=== PATIENT | female | born 2000 | race American Indian/Alaskan Native ===

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

== ENCOUNTER 2021-06-04 13:45 | Emergency (ER) | payer MEDICAID ==
[2021-06-04 14:19] VITALS: BP 146/92
--- NOTE | 2021-06-04 14:44 | Emergency Department Report ---
ED ENT HPI - General Chief complaint: Dental/Oral Stated complaint: TOOTHACHE Source: patient Mode of arrival: Ambulatory Limitations: No Limitations - History of Present Illness Initial comments: 20-year-old female presents to the ED complaining of toothache x 4 days . Patient states that she does not have access to the dental presents . She denies taking any xtpr-nni-[id number] medication prior to arrival. Patient do not have any obvious edema noted. No trismus noted. Patient is alert and oriented x4. No ill appearance noted .no acute distress noted MD complaint: tooth pain Severity scale (0 -10): 6 Context- Dental: history of dental caries Associated Symptoms: toothache. denies: fever, cough, gum swelling, pain with swallowing, tinnitus, discharge from ear - Related Data Previous Rx's Medication Instructions Recorded Last Taken Type Ibuprofen [Motrin] 600 mg PO Q8H PRN #30 tablet 11/17/20 Unknown Rx Ibuprofen [Motrin] 800 mg PO Q8HR PRN 15 Days #30 06/04/21 Unknown Rx tablet Penicillin V Potassium 500 mg PO BID 10 Days #20 tab 06/04/21 Unknown Rx Allergies Allergy/AdvReac Type Severity Reaction Status Date / Time No Known Allergies Allergy Unverified 11/16/20 21:39 ED Dental HPI - General Chief complaint: Dental/Oral Stated complaint: TOOTHACHE Source: patient Mode of arrival: Ambulatory Limitations: No Limitations - Related Data Previous Rx's Medication Instructions Recorded Last Taken Type Ibuprofen [Motrin] 600 mg PO Q8H PRN #30 tablet 11/17/20 Unknown Rx Ibuprofen [Motrin] 800 mg PO Q8HR PRN 15 Days #30 06/04/21 Unknown Rx tablet Penicillin V Potassium 500 mg PO BID 10 Days #20 tab 06/04/21 Unknown Rx Allergies Allergy/AdvReac Type Severity Reaction Status Date / Time No Known Allergies Allergy Unverified 11/16/20 21:39 ED Review of Systems ROS: Stated complaint: TOOTHACHE Other details as noted in HPI Constitutional: denies: chills, fever Eyes: denies: eye pain, eye discharge, vision change ENT: dental pain. denies: ear pain, throat pain Respiratory: denies: cough, shortness of breath, wheezing Cardiovascular: denies: chest pain, palpitations Endocrine: no symptoms reported Gastrointestinal: denies: abdominal pain, nausea, diarrhea Genitourinary: denies: urgency, dysuria, discharge Musculoskeletal: denies: back pain, joint swelling, arthralgia Skin: denies: rash, lesions Neurological: denies: headache, weakness, paresthesias Psychiatric: denies: anxiety, depression Hematological/Lymphatic: denies: easy bleeding, easy bruising ED Past Medical Hx - Past Medical History Previous Medical History?: No - Surgical History Past Surgical History?: No - Social History Smoking Status: Never Smoker Substance Use Type: Marijuana - Medications Home Medications: Home Medications Medication Instructions Recorded Confirmed Last Taken Type Ibuprofen [Motrin] 600 mg PO Q8H PRN #30 tablet 11/17/20 Unknown Rx Ibuprofen [Motrin] 800 mg PO Q8HR PRN 15 Days #30 06/04/21 Unknown Rx tablet Penicillin V Potassium 500 mg PO BID 10 Days #20 tab 06/04/21 Unknown Rx ED Physical Exam - General Limitations: No Limitations General appearance: alert, in no apparent distress - Head Head exam: Present: atraumatic, normocephalic - Eye Eye exam: Present: normal appearance - ENT ENT exam: Present: mucous membranes moist - Neck Neck exam: Present: normal inspection - Respiratory Respiratory exam: Present: normal lung sounds bilaterally. Absent: respiratory distress - Cardiovascular Cardiovascular Exam: Present: regular rate, normal rhythm. Absent: systolic murmur, diastolic murmur, rubs, gallop - GI/Abdominal GI/Abdominal exam: Present: soft, normal bowel sounds - Extremities Exam Extremities exam: Present: normal inspection - Back Exam Back exam: Present: normal inspection - Neurological Exam Neurological exam: Present: alert, oriented X3 - Psychiatric Psychiatric exam: Present: normal affect, normal mood - Skin Skin exam: Present: warm, dry, intact, normal color. Absent: rash ED Course Vital Signs 06/04/21 14:17 Temperature 98 F Pulse Rate 86 Respiratory 16 Rate Blood Pressure 146/92 [Left] O2 Sat by Pulse 100 Oximetry ED Medical Decision Making - Medical Decision Making 20-year-old female presents to the ED complaining of toothache x 4 days . Patient states that she does not have access to the dental presents . She denies taking any jyyp-dju-jnrzbjd medication prior to arrival. Patient do not have any obvious edema noted. No trismus noted. Patient is alert and oriented x4. No ill appearance noted .no acute distress noted. Patient has a dental cavity noted to the tooth #21. Uvula is midline. No tenderness noted to the gum area. Rechecked the patient is resting quietly quietly and comfortable and feeling better. I discussed the results of diagnostic study, my clinical impression and the plan for further treatment with the patient. Patient agrees with plan and discharge at this present time. All question addressed. I have given the patient instruction regarding a diagnosis ,expectation ,follow- up and return precaution. I explained to the patient that emergent condition may arise and to return to the ED for new worsen and any new persisting condition. I have explained the importance of following up with the primary care physician or referral physician listed below has instructed. The patient verbalized understanding of discharge instruction. Critical care attestation.: If time is entered above; I have spent that time in minutes in the direct care of this critically ill patient, excluding procedure time. ED Disposition Clinical Impression: Dental cavity Disposition: HOME / SELF CARE / HOMELESS Is pt being admited?: No Does the pt Need Aspirin: No Condition: Stable Instructions: Preventive Dental Care, Adult Additional Instructions: Follow-up with dentist Take medication as prescribed May go to urgent care 14/11 for extraction Prescriptions: Ibuprofen [Motrin] 800 mg PO Q8HR PRN 15 Days #30 tablet PRN Reason: Pain, Moderate (4-6) Penicillin V Potassium 500 mg PO BID 10 Days #20 tab Referrals: PRIMARY CARE, [Primary Care Provider] - 3-5 Days [facility] [Outside] - 3-5 Days Forms: Work/School Release Form(ED) Time of Disposition: 14:55
== END 2021-06-04 15:53 | disposition home or self-care (01) ==
LOC: ED 13:45
DX: K02.9 Dental caries, unspecified (principal); F12.90 Cannabis use, unspecified, uncomplicated; Z79.899 Other long term (current) drug therapy
CPT/HCPCS: 99282

== ENCOUNTER 2021-07-18 17:05 | Emergency (ER) | payer MEDICAID ==
--- NOTE | 2021-07-18 18:33 | Emergency Department Report ---
ED ENT HPI - General Chief complaint: Earache Stated complaint: EAR INFECTION Time Seen by Provider: 07/18/21 18:15 Source: patient Mode of arrival: Ambulatory Limitations: No Limitations - History of Present Illness Initial comments: 20-year-old black female with no past medical history presents to the emergency department for evaluation of foreign body in left ear canal. She states that she had a small earring in her left ear and she was taken out last night and accidentally dropped it into her ear canal and has been unable to get it out since then. She denies pain or drainage from ear. MD complaint: foreign body -: days(s) (1) Location: L ear Severity scale (0 -10): 0 Associated Symptoms: denies: fever, tinnitus, discharge from ear - Related Data Previous Rx's Medication Instructions Recorded Last Taken Type Ibuprofen [Motrin] 600 mg PO Q8H PRN #30 tablet 11/17/20 Unknown Rx Ibuprofen [Motrin] 800 mg PO Q8HR PRN 15 Days #30 06/04/21 Unknown Rx tablet Penicillin V Potassium 500 mg PO BID 10 Days #20 tab 06/04/21 Unknown Rx Allergies Allergy/AdvReac Type Severity Reaction Status Date / Time No Known Allergies Allergy Unverified 11/16/20 21:39 ED Dental HPI - General Chief complaint: Earache Stated complaint: EAR INFECTION Time Seen by Provider: 07/18/21 18:15 Source: patient Mode of arrival: Ambulatory Limitations: No Limitations - Related Data Previous Rx's Medication Instructions Recorded Last Taken Type Ibuprofen [Motrin] 600 mg PO Q8H PRN #30 tablet 11/17/20 Unknown Rx Ibuprofen [Motrin] 800 mg PO Q8HR PRN 15 Days #30 06/04/21 Unknown Rx tablet Penicillin V Potassium 500 mg PO BID 10 Days #20 tab 06/04/21 Unknown Rx Allergies Allergy/AdvReac Type Severity Reaction Status Date / Time No Known Allergies Allergy Unverified 11/16/20 21:39 ED Review of Systems ROS: Stated complaint: EAR INFECTION Other details as noted in HPI Comment: All other systems reviewed and negative Constitutional: denies: chills, fever ENT: denies: ear pain Respiratory: denies: shortness of breath Cardiovascular: denies: chest pain, palpitations Gastrointestinal: denies: abdominal pain, nausea, vomiting Musculoskeletal: denies: back pain Skin: denies: rash, lesions Neurological: denies: headache, weakness ED Past Medical Hx - Past Medical History Previous Medical History?: No - Surgical History Past Surgical History?: No - Social History Smoking Status: Never Smoker Substance Use Type: Marijuana - Medications Home Medications: Home Medications Medication Instructions Recorded Confirmed Last Taken Type Ibuprofen [Motrin] 600 mg PO Q8H PRN #30 tablet 11/17/20 Unknown Rx Ibuprofen [Motrin] 800 mg PO Q8HR PRN 15 Days #30 06/04/21 Unknown Rx tablet Penicillin V Potassium 500 mg PO BID 10 Days #20 tab 06/04/21 Unknown Rx ED Physical Exam - General Limitations: No Limitations General appearance: alert, in no apparent distress - Head Head exam: Present: atraumatic, normocephalic - Eye Eye exam: Present: normal appearance. Absent: conjunctival injection - Expanded ENT Exam Expanded TM/Canal exam: Foreign Body: Left TM - Neck Neck exam: Present: normal inspection - Respiratory Respiratory exam: Absent: respiratory distress - Cardiovascular Cardiovascular Exam: Present: regular rate - GI/Abdominal GI/Abdominal exam: Absent: distended - Extremities Exam Extremities exam: Present: normal inspection - Back Exam Back exam: Present: normal inspection - Neurological Exam Neurological exam: Present: alert, oriented X3 - Psychiatric Psychiatric exam: Present: normal affect, normal mood - Skin Skin exam: Present: warm, dry, intact, normal color ED Course Vital Signs 07/18/21 07/18/21 17:35 19:07 Temperature 98.1 F 98.4 F Pulse Rate 84 80 Respiratory 20 16 Rate Blood Pressure 132/68 124/79 [Right] O2 Sat by Pulse 100 100 Oximetry - Foreign Body Removal Ear Location: ear canal (L) Foreign Body Suspected: other (Small urine) Foreign Body Removed: yes Foreign Body Removal Technique: forceps (Alligator forceps) Tympanic Membrane Intact: Yes Patient Tolerated Procedure: well, no complications Complications: none Additional Comments: Earring totally intact when removed. ED Medical Decision Making - Medical Decision Making 20-year-old black female with no past medical history presents to the emergency department for evaluation of foreign body in left ear canal. She states that she had a small earring in her left ear and she was taken out last night and accidentally dropped it into her ear canal and has been unable to get it out since then. She denies pain or drainage from ear. Patient noted to have hearing in the left ear canal. Urine removed totally intact with alligator forceps. Patient tolerated well she was advised to follow-up with primary care as needed and return to the emergency department for any concerning symptoms. She verbalized understanding of and agreement with pl of care. Critical care attestation.: If time is entered above; I have spent that time in minutes in the direct care of this critically ill patient, excluding procedure time. ED Disposition Clinical Impression: Foreign body of ear, left Qualifiers: Encounter type: initial encounter Qualified Code(s): T16.2XXA - Foreign body in left ear, initial encounter Disposition: HOME / SELF CARE / HOMELESS Is pt being admited?: No Does the pt Need Aspirin: No Condition: Stable Instructions: Ear Foreign Body, [id number] Additional Instructions: Follow-up with primary care provider return to the emergency department for any concerning symptoms. Referrals: REESE CULP MD [Primary Care Provider] - 3-5 Days Time of Disposition: 18:33
[2021-07-18 19:12] VITALS: BP 124/79
== END 2021-07-18 19:07 | disposition home or self-care (01) ==
LOC: ED 17:05
DX: T16.2XXA Foreign body in left ear, initial encounter (principal); X58.XXXA Exposure to other specified factors, initial encounter; Y93.89 Activity, other specified; Y92.89 Other specified places as the place of occurrence of the external cause; Y99.8 Other external cause status
CPT/HCPCS: 99282